=== PATIENT | female | born 1965 | race African-American/Black ===

== ENCOUNTER 2016-07-26 12:09 | Emergency (ER) | payer MEDICARE, MEDICAID ==
[2016-07-26] MEDS ORDERED: ONDANSETRON HCL/PF 2 MG/ML VIAL IV ONE (12:16)
[2016-07-26] MEDS ORDERED: NORMAL SALINE 1,000 ML IV ONE (12:17)
[2016-07-26 12:20] VITALS: BP 121/78
--- NOTE | 2016-07-26 12:25 | ERNOTE ---
Abdominal HPI - Narrative Date of Service: 07/26/16 - General Time Seen by Provider: 07/26/16 12:16 Source: patient Exam Limitations: no limitations - Immun/Allergies/Home Medications Immunizatons: IMMUNIZATION HX Immunizations Up to Date Yes History of Influenza Vaccine No Hx Pneumococcal Vaccination No Allergies/Adverse Reactions: Allergies ibuprofen Adverse Reaction (Mild, Verified 07/26/16 12:20) vomitting Home Medications: HOME MEDICATIONS Albuterol Sulfate [Proventil Hfa] 1 puff IH Q4H PRN 04/10/15 [Last Taken Unknown ] Loratadine [Claritin] 10 mg PO DAILY 04/10/15 [Last Taken Unknown] Montelukast Sodium [Singulair] 10 mg PO DAILY 04/10/15 [Last Taken Unknown] Folic Acid 1 tab PO DAILY 05/23/16 [Last Taken Unknown] Multivit-Min/Iron Fum/Folic AC [Dtckn-Cdioovc-Kljwbpkx Tablet] 1 tab PO DAILY [Last Taken Unknown] Nabumetone [Relafen] 500 mg PO BID #60 tab 05/23/16 [Last Taken Unknown] - History of Present Illness Narrative: Pt. comes in with c/o one day hx of lower abd pain that is accompanied by nausea. Pt. also states that she had one episode of dizziness when she got up from a seated position this morning and was very nauseated. Pt. denies any vomiting,diarrhea, constipation, alleviating factors, or aggravating factors, but does state that it is accompanied by frequency and dysuria. Pt. denies any fevers, SOB, back pain, or CP. Pt. is on immunomodulators for RA. Review of Systems - Review of Systems Constitutional: Present: fatigue, malaise. Absent: fever, chills, diaphoresis, weakness, decreased activity level EYE: Present: no symptoms reported ENT: Present: no symptoms reported. Absent: nose pain, nose congestion, nasal drainage, sore throat Respiratory: Present: no symptoms reported. Absent: shortness of breath, cough , wheezing Cardiology: Present: no symptoms reported. Absent: chest pain, palpitations, edema Gastrointestinal/Abdominal: Present: nausea, abdominal pain, eating less, drinking less. Absent: vomiting, diarrhea, constipation Genitourinary: Present: frequency, pain, dysuria. Absent: hematuria, decreased urinary output, discharge Musculoskeletal: Present: no symptoms reported. Absent: back pain, muscle pain , joint pain Skin: Present: no symptoms reported. Absent: rash, change in color Neurological: Present: no symptoms reported. Absent: headache, dizziness/light- headedness, numbness, tingling All Other Systems: All systems neg except as marked - Patient's Past Medical History Patient History - Medical: Anxiety, Depression, Rheumatoid Arthritis, Other - Genital herpes Patient History - Cardiac/Respiratory: Asthma Patient History - Cancer: No Hx of Cancer Patient History - Surgical Procedures: Hysterectomy, T & A Patient History - Other: None - Family History Father Family History - Medical: No pertinent hx Family History - Cardiac/Respiratory: No pertinent hx Mother Family History - Medical: No pertinent hx Family History - Cardiac/Respiratory: No pertinent hx - Social History Living Situations: home Abuse History: No History of abuse Psych History: No pertinent hx Alcohol Use: rarely Drug Use: none - Immunizations Immunizations Up to Date: Yes Hx Pneumococcal Vaccination: No History of Influenza Vaccine: No Physical Exam - Physical Exam General Appearance: Present: wd/wn, alert, no apparent distress Eye Exam: Normal inspection: bilateral, PERRL: bilateral, EOMI: bilateral Ears, Nose, Throat: Present: normal ENT inspection, hearing grossly normal, normal pharynx Neck: Present: normal inspection, nontender. Absent: lymphadenopathy (R), lymphadenopathy (L) Respiratory: Present: no respiratory distress, normal breath sounds, no accessory muscle use, chest nontender, lungs clear. Absent: rales, rhonchi, wheezing Cardiovascular/Chest: Present: regular rate, rhythm, no murmur, normal peripheral pulses. Absent: gallop/S3, gallop/S4, friction rub Gastrointestinal/Abdominal: Present: normal bowel sounds, nondistended, soft, no organomegaly, tenderness - suprapubic. Absent: McBurney sign, Obturator sign , Plaza sign, Psoas sign Extremity Exam: Present: normal inspection, non-tender, no edema, normal range of motion Neurological Exam: Present: alert, oriented, normal mood/affect, no motor/ sensory deficits Skin Exam: Present: normal color, warm/dry. Absent: pallor, skin rash ED Progress - Results and Orders Patient's Lab Results:: I have reviewed the patient's lab results. Results and Orders: increasee in amylase likely from Relafen slightly elevated potassium not dangerous level likely from decrease in water intake. - Vital Signs Patient's Vital Signs:: I have reviewed the patient's vital signs. - X-Ray X-Ray #1 X-Ray: abdomen Interpretation: Interp. by me X-ray Comments: moderate stool retention, no obstruction, no free air Departure - Departure Clinical Impression: Abdominal pain Qualifiers: Abdominal location: lower abdomen, unspecified Qualified Code(s): R10.30 - Lower abdominal pain, unspecified Constipation Qualifiers: Constipation type: slow transit constipation Qualified Code(s): K59.01 - Slow transit constipation Disposition: Home self-care Condition: Good Instructions: Constipation, Adult, [id number], Form - Excuse from Work, School, or Physical Activity Additional Instructions: Please follow up with primary provider in 2-3 days if not improved. Start taking Miralax daily. Take 1 bottle of magnesium citrate when you leave here. Referrals: Mikey Owen MD [Primary Care Provider] -
[2016-07-26] MEDS ORDERED: ONDANSETRON HCL/PF 2 MG/ML VIAL ONE (12:28)
[2016-07-26 12:31] LABS: Hemoglobin 14.1 gm/dL (12.5-16.0); Mean Cell Volume 92.3 fl (78-100); Mean Corpuscular Hgb Conc 33.6 g/dl (32-36); Mean Platelet Volume 9.3 fl (6.0-9.5); Neutrophil # 3.3 K/mm3 (1.3-6.0); Neutrophil % 56.8 % (42-75.0); Platelet Count 285 K/mm3 (150-450); Red Blood Count 4.55 M/mm3 (4.2-5.4); Red Cell Distribution Width 12.8 % (11.5-14.0); White Blood Count 5.9 K/mm3 (4.0-10.5)
[2016-07-26 12:32] LABS: Urine Bilirubin Negative (NEGATIVE); Urine Blood Negative /ul (NEGATIVE); Urine Ketone Negative (NEGATIVE); Urine Nitrite Negative (NEGATIVE); Urine Protein Negative (NEGATIVE); Urine Specific Gravity 1.025 SP.GR. (1.005-1.010); Urine Urobilinogen Normal (NORMAL)
--- OUTSIDE RECORDS SUMMARY | 2016-07-26 12:33 | XMS REPORT | Continuity of Care Document ---
:1965 Author Organization [facility] ([facility]) Address [address] [place] [address] Phone [phone] Care Team Providers Name Role Phone Basim Ryan Primary Care Provider [phone] Source Comments This disclosure is being made pursuant to the Care Everywhere program, applicable federal and state laws, and may not contain all informaitonavailable regarding this patient.[facility] ([facility]) Active Allergies and Adverse Reactions Allergen Noted Date Severity Reactions Comments Ibuprofen 01/04/2012 Unknown Upsets stomach even on full stomach Current Medications Prescription Sig. Disp. Refills Start Date End Date Status montelukast (SINGULAIR) Take 10 mg by mouth Active 10 mg tablet daily. LORACARBEF (LORABID PO) Take 1 Tab by mouth Active daily. fluticasone (FLOVENT Use 1 Puff by Active HFA 220) inhaler inhalation every 12 hours. albuterol (PROVENTIL, Use 1-2 Puffs by Active VENTOLIN) 90 inhalation every 6 mcg/Actuation inhaler hours as needed. multivitamin (MULTIPLE Take 1 Tab by mouth Active VITAMIN) tablet daily. 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 Premenopausal menorrhagia 01/05/2012 PTSD (post-traumatic stress disorder) 01/05/2012 Social History Tobacco Use Types Packs/Day Years Used Date Current Some Day Smoker Cigarettes Comments:smokes 1 pack in 1 1/2 weeks Alcohol Use Drinks/Week oz/Week Comments No Last Filed Vital Signs Vital Sign Reading Time Taken Blood Pressure 100/61 01/04/2012 2:47 PM CDT Pulse 112 01/04/2012 2:47 PM CDT Temperature 36.6 C (97.9 F) 01/04/2012 2:47 PM CDT Respiratory Rate - - Height 1.685 m (5' 6.34") 01/04/2012 2:47 PM CDT Weight 79.2 kg (174 lb 9.7 oz) 01/04/2012 2:47 PM CDT Body Mass Index 27.89 01/04/2012 2:47 PM CDT Oxygen Saturation - - Plan of Care Health Maintenance Due Date Last Done Comments Hepatitis B Vaccine (1 of 3 - Primary Series) 1965 Tdap Vaccine 1978 Lipid Disorder Screening 1985 MMR Vaccine 1985 Td Vaccine 1985 Pneumococcal Vaccine (1 of 1 - PPSV23) 1986 Cervical Cancer Screening 1997 Mammogram 2007 Influenza Vaccine: Seasonal (#1) 12/27/2015 Results from Last 3 Months Not on file
[2016-07-26 12:43] LABS: Anion Gap 10.6 mmol/L (6.8-13.8); BUN/Creatinine Ratio 17.8 (9.0-21.6); Bilirubin, Total 0.2 mg/dL (0.0-1.1); Ca. Corrected For Albumin 9.6 mg/dL (8.4-10.2); Calcium * 9.9 mg/dL (7.9-10.9); Carbon Dioxide 32.3 mmol/L (24-32.6); Potassium 4.9 mmol/L (3.4-4.6); Total Protein 8.4 gm/dL (6.2-8.2)
[2016-07-26 12:53] LABS: Urine Appearance Clear; Urine Bacteria 1+; Urine Color Yellow; Urine RBC TRACE /hpf (0-5); Urine WBC None Seen /hpf (0-5)
[2016-07-26] MEDS ORDERED: DICYCLOMINE HCL 20 MG TABLET PO ONE (13:02)
[2016-07-26] MEDS ORDERED: DICYCLOMINE HCL 20 MG TABLET ONE (13:09)
[2016-07-26] MEDS ORDERED: MAGNESIUM CITRATE 300 ML BTL ONE (13:20)
[2016-07-26] MEDS ORDERED: MAGNESIUM CITRATE 300 ML BTL PO ONE (13:21)
== END 2016-07-26 13:57 | disposition home or self-care (01) ==
LOC: ER 12:09
DX: R10.30 Lower abdominal pain, unspecified (principal); K59.01 Slow transit constipation; M06.9 Rheumatoid arthritis, unspecified; F41.8 Other specified anxiety disorders

== ENCOUNTER 2016-10-23 19:52 | Emergency (ER) | payer MEDICARE, MEDICAID ==
[2016-10-23] MEDS ORDERED: FLUCONAZOLE 100 MG TABLET PO ONE (20:12)
--- OUTSIDE RECORDS SUMMARY | 2016-10-23 20:15 | XMS REPORT | Continuity of Care Document ---
:1965 Author Organization [facility] ([facility]) Address [address] [place] [address] Phone [phone] Care Team Providers Name Role Phone Basim Ryan Primary Care Provider [phone] Source Comments This disclosure is being made pursuant to the Care Everywhere program, applicable federal and state laws, and may not contain all informaitonavailable regarding this patient.[facility] ([facility]) Active Allergies and Adverse Reactions Allergen [...]
[2016-10-23] MEDS ORDERED: FLUCONAZOLE 100 MG TABLET ONE (20:18)
--- NOTE | 2016-10-23 20:19 | ERNOTE ---
ER Female HPI Stated Complaint: YEAST INFECTION Presenting Symptoms: other - vaginal itching Time Seen by Provider: 10/23/16 20:04 Source: patient Exam Limitations: no limitations Immunizations: IMMUNIZATION HX Immunizations Up to Date Yes History of Influenza Vaccine Yes Hx Pneumococcal Vaccination No Allergies/Adverse Reactions: Allergies ibuprofen Adverse Reaction (Mild, Verified 07/26/16 12:20) vomitting Home Medications: HOME MEDICATIONS Albuterol Sulfate [Proventil Hfa] 1 puff IH Q4H PRN 04/10/15 [Last Taken Unknown ] Loratadine [Claritin] 10 mg PO DAILY 04/10/15 [Last Taken Unknown] Montelukast Sodium [Singulair] 10 mg PO DAILY 04/10/15 [Last Taken Unknown] Folic Acid 1 tab PO DAILY 05/23/16 [Last Taken Unknown] Multivit-Min/Iron Fum/Folic AC [Gifkn-Epcxfqt-Zqrjqcek Tablet] 1 tab PO DAILY [Last Taken Unknown] Nabumetone [Relafen] 500 mg PO BID #60 tab 05/23/16 [Last Taken Unknown] - History of Present Illness Narrative: Pt had a UTI last week finished antibiotics last Sunday and drove from [place] yesterday and began to have itching similar to other UTI's Timing: Present: getting worse Quality: Present: moderate Onset Location: Present: vaginal Radiation: Present: none Prior Abdominal Problems: Present: none Prior Treatment: Present: recently seen - for UTI Review of Systems - Review of Systems Constitutional: Present: no symptoms reported EYE: Present: no symptoms reported ENT: Present: no symptoms reported Respiratory: Present: no symptoms reported Cardiology: Present: no symptoms reported Gastrointestinal/Abdominal: Present: no symptoms reported Genitourinary: Present: See HPI. Absent: dysuria, hematuria Skin: Present: no symptoms reported Neurological: Present: no symptoms reported Endocrine: Present: no symptoms reported Hematologic/Lymphatic: Present: no symptoms reported Psych: Present: no symptoms reported - Patient's Past Medical History Patient History - Medical: Anxiety, Depression, Rheumatoid Arthritis, Other Patient History - Cardiac/Respiratory: Asthma Patient History - Cancer: No Hx of Cancer Patient History - Surgical Procedures: Hysterectomy, T & A Patient History - Other: None - Family History Father Family History - Medical: No pertinent hx Family History - Cardiac/Respiratory: No pertinent hx Mother Family History - Medical: No pertinent hx Family History - Cardiac/Respiratory: No pertinent hx - Social History Living Situations: home Abuse History: No History of abuse Psych History: Hx of Anxiety, Hx of Depression Smoking Status: Current every day smoker Have you smoked in the past 12 months: Yes Alcohol Use: rarely Drug Use: none - Immunizations Immunizations Up to Date: Yes Hx Pneumococcal Vaccination: No History of Influenza Vaccine: Yes Physical Exam - Physical Exam General Appearance: Present: wd/wn, alert, no apparent distress Neck: Present: normal inspection, full range of motion Respiratory: Present: no respiratory distress, no accessory muscle use Extremity Exam: Present: normal inspection, normal range of motion Neurological Exam: Present: alert, oriented, normal mood/affect Skin Exam: Present: normal color, warm/dry ED Progress - Vital Signs Vital Signs: Vital Signs 10/23/16 19:57 Temperature 37.1 C Pulse Rate 115 H Respiratory 17 Rate Blood Pressure 94/69 O2 Sat by Pulse 99 Oximetry - Progress/Reassessment Chief Complaint: Genitourinary Problem Departure Clinical Impression: Vaginitis due to Halima - Departure Disposition: Home self-care Condition: Good Instructions: Vaginal Yeast Infection, Adult Referrals: Mikey Owen MD [Primary Care Provider] -
[2016-10-23 21:27] VITALS: BP 95/65
== END 2016-10-23 20:25 | disposition home or self-care (01) ==
LOC: ER 19:52
DX: B37.3 Candidiasis of vulva and vagina (principal); Z72.0 Tobacco use

== ENCOUNTER 2016-11-19 16:23 | Emergency (ER) | payer MEDICARE, MEDICAID ==
[2016-11-19 17:08] VITALS: BP 109/73
--- NOTE | 2016-11-19 17:10 | ERNOTE ---
ER Female HPI Stated Complaint: INFECTION Presenting Symptoms: vaginal discharge Time Seen by Provider: 11/19/16 16:44 Source: patient Exam Limitations: no limitations Immunizations: IMMUNIZATION HX Immunizations Up to Date Yes History of Influenza Vaccine Yes Hx Pneumococcal Vaccination No Allergies/Adverse Reactions: Allergies ibuprofen Adverse Reaction (Mild, Verified 07/26/16 12:20) vomitting Home Medications: HOME MEDICATIONS Albuterol Sulfate [Proventil Hfa] 1 puff IH Q4H PRN 04/10/15 [Last Taken Unknown ] Loratadine [Claritin] 10 mg PO DAILY 04/10/15 [Last Taken Unknown] Montelukast Sodium [Singulair] 10 mg PO DAILY 04/10/15 [Last Taken Unknown] Folic Acid 0.4 mg PO DAILY 11/19/16 [Last Taken Unknown] Multivitamins [Multivitamin Dany] 1 cap PO DAILY 11/19/16 [Last Taken Unknown] Nabumetone [Relafen] 500 mg PO BID PRN 11/19/16 [Last Taken Unknown] - History of Present Illness Narrative: A month ago patient was diagnosed with bacterial vaginosis, treated with antibiotic,then ended up with a yeast infection and treated for that. Now she has had vaginal discharge for 2-3 day, not sure about color, strong smell, no itching, no urinary symptoms.She is sexually active with her only. Sexual [place] History: Present: single partner Associated Symptoms: Absent: fever/chills, diaphoresis, polyuria Review of Systems - Review of Systems Constitutional: Absent: fever, chills ENT: Absent: sore throat Respiratory: Absent: shortness of breath Cardiology: Absent: chest pain Gastrointestinal/Abdominal: Absent: nausea, vomiting, abdominal pain Genitourinary: Present: discharge. Absent: frequency, dysuria Musculoskeletal: Absent: back pain - Patient's Past Medical History Patient History - Medical: Anxiety, Depression, Rheumatoid Arthritis Patient History - Cardiac/Respiratory: Asthma Patient History - Cancer: No Hx of Cancer Patient History - Surgical Procedures: Hysterectomy, T & A Patient History - Other: None - Family History Father Family History - Medical: No pertinent hx Family History - Cardiac/Respiratory: No pertinent hx Family History - Cancer: No pertinent family hx Mother Family History - Medical: No pertinent hx Family History - Cardiac/Respiratory: No pertinent hx Family History - Cancer: No pertinent family hx - Social History Living Situations: other Abuse History: No History of abuse Psych History: Hx of Anxiety, Hx of Depression, Current tx/ever been on anti- depressants or anti-anxiety meds Smoking Status: Current every day smoker Have you smoked in the past 12 months: Yes Patient requests Smoking Cessation Consult: No Initiate information on Smoking Cessation: No Alcohol Use: rarely Drug Use: none - Immunizations Immunizations Up to Date: Yes Hx Pneumococcal Vaccination: No History of Influenza Vaccine: Yes Physical Exam - Physical Exam General Appearance: Present: wd/wn, alert, no apparent distress Eye Exam: Normal inspection: bilateral, PERRL: bilateral Respiratory: Present: no respiratory distress, normal breath sounds, no accessory muscle use, lungs clear Cardiovascular/Chest: Present: regular rate, rhythm, no murmur Gastrointestinal/Abdominal: Present: normal bowel sounds, nontender, nondistended, soft Back Exam: Present: no CVA tenderness Neurological Exam: Present: alert, oriented, normal mood/affect Skin Exam: Present: normal color, warm/dry Pelvic Exam: Present: other - normal speculum exam, minimal amount of white physiological discharge,cervix surgically absent, normal bimanual exam ED Progress - Results and Orders Patient's Lab Results:: I have reviewed the patient's lab results. - Vital Signs Patient's Vital Signs:: I have reviewed the patient's vital signs. Vital Signs: Vital Signs 11/19/16 16:26 Temperature 36.5 C Pulse Rate 125 H Respiratory 18 Rate Blood Pressure 112/67 O2 Sat by Pulse 100 Oximetry - Progress/Reassessment Chief Complaint: Genitourinary Problem Progress Note-Subjective: 11/19/16 18:20 explained test results to patient, as normal exam and wet prep no antibiotics indicated, explained trying to use OTC probiotic or yogurt on a tampon Departure Clinical Impression: Vaginal discharge - Departure Disposition: Home self-care Condition: Good Additional Instructions: use over the counter probiotics and call your doctor for follow up Referrals: Mikey Owen MD [Primary Care Provider] -
== END 2016-11-19 18:28 | disposition home or self-care (01) ==
LOC: ER 16:23
DX: N89.8 Other specified noninflammatory disorders of vagina (principal); F17.200 Nicotine dependence, unspecified, uncomplicated